=== PATIENT | male | born 1940 | race Caucasian/White ===

== ENCOUNTER 2016-07-04 11:06 | Emergency (ER) | payer OTHER, MEDICARE, BC ==
[~2016-07-04 11:06] MED LIST: ALAVERT10 MG PO; ALFUZOSIN HCL E10 MG PO; AMARYL4 M1 PO; AMARYL4 MG PO; APRISO0.375 GM PO; ASPIR 8181 MG PO; ASPIR-LOW81 MG PO; ASPIRIN EC81 MG PO; CARVEDILOL25 MG PO; CLARITIN10 M6 PO; CLINDA DERM TP; COREG25 M1 PO; COREG25 MG PO; COUMADIN2 MG PO; COUMADIN3 MG PO; COUMADIN4 M1 PO; COUMADIN4 MG PO; CYMBALTA60 M1 PO; DIGITEK250 MCG PO; FLONASE ALLERG9.9 ML; FLONASE16 GM NS; GLUCOPHAGE1000 M1 PO; GLUCOPHAGE1000 MG PO; HUMALOG100 U/ML SQ; IMURAN50 M1 PO; LANOXIN250 MC2 PO; LANTUS100 U/ML SC; LEVAQUIN750 MG PO; LEVEMIR100 UNITS/ SC; LISINOPRIL-HC PO; LISINOPRIL20 MG PO; NIACIN PO; NIASPAN1000 MG PO; NIASPAN750 MG PO; POLYETHYLENE GL17 G1 PO; PREDNISONE10 MG PO; PREDNISONE5 MG PO; SULFASALAZINE500 MG PO; SYMBICORT 160-1 PUFF INH; TYLENOL325 M1 PO; VERAMYST10 GM NS; VICTOZA 2-0.6 MG/0.1 SC; VICTOZA0.6 MG/0.1 SQ; ZESTRIL20 MG PO; ZOCOR20 M1 PO; ZOCOR20 MG PO; ZYLOPRIM100 M1 PO
== END 2016-07-04 13:18 ==
LOC: EDMED 11:06
DX: S51.811A Laceration without foreign body of right forearm, initial encounter (principal); S80.211A Abrasion, right knee, initial encounter; V49.40XA Driver injured in collision with unspecified motor vehicles in traffic accident, initial encounter; Y92.410 Unspecified street and highway as the place of occurrence of the external cause